=== PATIENT | female | born 1960 ===

== ENCOUNTER 2016-10-18 09:51 | Day surgery (SDC) | payer MEDICAID ==
[2016-10-18] MEDS ORDERED: Lactated Ringer's 500 ML IV ONE (10:35)
[2016-10-18] MEDS ORDERED: Propofol 10 mg/ml Inj (20 ML) ONE (11:59)
[2016-10-18] MEDS ORDERED: Simethicone 40 mg/0.6 ml Liquid (30 ml) ONE (12:57)
[2016-10-18 13:16] VITALS: TEMP 98
[2016-10-18 13:51] VITALS: BP 110/71; PULSE 73; RESP 12; O2SAT 100
== END 2016-10-18 14:19 | disposition home or self-care (01) ==
LOC: H.ENDO 09:51
PROVIDERS: ATTEND Internal Medicine Gastroenterology
DX: K57.30 Diverticulosis of large intestine without perforation or abscess without bleeding (principal); K63.5 Polyp of colon; F32.9 Major depressive disorder, single episode, unspecified; F41.9 Anxiety disorder, unspecified